=== PATIENT | male | born 1975 | race Caucasian/White ===

== ENCOUNTER 2024-06-07 20:10 | Emergency (ER) | payer BC, SELFPAY ==
[2024-06-07 20:17] VITALS: BP 136/74
[2024-06-07 20:48] LABS: % Basophils 0.7 % (0-2); % Eosinophils 1.4 % (0-6); % Immature Granulocytes 0.2 % (0-0.5); % Lymphocytes 38.2 % (20.5-51.1); % Monocytes 9.3 % (1.7-9.3); % Neutrophils 50.2 % (42.2-75.2); Absolute Basophils 0.1 10^3/uL (0-0.2); Absolute Eosinophils 0.2 10^3/uL (0-0.7); Absolute Lymphocytes 5.3 10^3/uL (1.2-3.4); Absolute Monocytes 1.3 10^3/uL (0.1-0.6); Hemoglobin 14.9 g/dL (13.0-18.0); Mean Corp Hgb Conc. 36.3 g/dL (33.0-37.0); Mean Corpuscular Hgb 32.8 pg (27.0-31.0); Mean Corpuscular Volume 90.3 fL (80.0-94.0); Nucleated Red Blood Cells % 0 % (-); Platelet Count 309 10^3/uL (130-400); Red Blood Cell Count 4.54 10^6/uL (4.70-6.10); Red Cell Dist. Width 12.8 % (11.5-14.5); White Blood Cell Count 13.8 10^3/uL (4.8-10.8)
[2024-06-07 21:02] LABS: ALT (SGPT) 35 U/L (0-50); AST (SGOT) 27 U/L (17-59); Albumin 4.1 g/dl (3.5-5.0); Alkaline Phosphatase 94 U/L (38-126); Blood Urea Nitrogen 12 mg/dl (9-20); Calcium 9.5 mg/dl (8.4-10.2); Carbon Dioxide 27 mmol/L (22-30); Chloride 104 mmol/L (98-107); Glucose 96 mg/dl (70-99); Lipase 103 U/L (23-300); Sodium 139 mmol/L (135-145); Total Bilirubin 0.3 mg/dl (0.2-1.3); Total Protein 6.8 g/dl (6.3-8.2); eGFR > 60.00
--- NOTE | 2024-06-07 22:05 | ED.GENMED ---
History of Present Illness
<NIYAH Schnedier - Last Filed: 06/08/24 03:18>
General
Chief Complaint: Abdominal Pain
Source: patient and significant other
Exam Limitations: none
Time Seen by Provider: 06/07/24 22:05
Nursing documentation reviewed up to this point in time: agreed with
History of Present Illness
History of Present Illness:
49 year old male presents for evaluation of left-sided lower chest/upper abdominal pain. Pt reports that his pain began approximately one month ago and has been intermittent in nature. Pain is located in the left lower chest/ribs and LUQ. Pt notes
that the pain is exacerbated by meals and with sitting and lying supine, slightly improved with mobility. Pt has not tried any medications for the pain. He was seen by his PCP last Tuesday where blood work was done, and pt was provided scripts for CT
and colonoscopy. He has not undergone CT or colonoscopy yet. He endorses associated decreased appetite as well as generalized mild fatigue and joint pain. No N/V, diarrhea, constipation, bloody stools, fever, chills, dysuria, hematuria, increased
frequency or urgency of urination, and recent URI.
Past History
<NIYAH Schneider - Last Filed: 06/08/24 03:18>
Past History
ED Past Medical History: Arrthythmia (A. fib, a flutter, on Eliquis)
ED Past Surgical History: Cardiac (Ablation)
Social History
Tobacco: Smoker
Personal:
Living: with family
Employment: Employed
Review of Systems
<NIYAH Schneider - Last Filed: 06/08/24 03:18>
Review of Systems
Allergies reviewed?: Yes
Constitutional: Reports fatigue (mild)
EENT: Reports no symptoms
Respiratory: Reports no symptoms
Cardiac: Reports no symptoms
ABD/GI: Reports abdominal pain (LUQ) and anorexia
: Reports flank pain (left flank )
Musculoskeletal: Reports no symptoms
Skin: Reports no symptoms
Neurological: Reports no symptoms
Endocrine: Reports no symptoms
Hematologic/Lymphatic: Reports no symptoms
Psychiatric: Reports no symptoms
Phy Exam
<[facility] [place] - Last Filed: 06/08/24 03:18>
General Physical Exam
General Presentation: well appearing
General age: appears stated age
General Skin: warm
General Habitus: normal
General Mental: alert
General Hydration: appears well hydrated
Cardiovascular Exam
Cardiovascular Exam: regular rate/rhythm
Pulmonary Exam
Pulmonary Exam: lungs clear and no respiratory distress
Gastrointestinal Exam
Gastrointestinal Exam: normal bowel sounds, soft and non distended
Palpation: left upper quadrant: Minimal tenderness
Neurological Exam
Neurological Exam: alert and oriented x3
Musculoskeletal Exam
Musculoskeletal Exam: back pain (left flank )
Course
<Lonny Singh [facility] - Last Filed: 06/08/24 03:18>
Orders/Labs/Results
Orders:
Orders
06/07/24 20:24
IV Insert/Care/Rem.- Treatment PRN
06/07/24 20:25
ECG [Electrocardiogram (*1)] Urgent
Reason for Study: Abdominal Pain
Cardiology Consult: Unknown
EKG- Treatment ONCE
06/07/24 20:38
Complete Blood Count/With Diff Urgent
Comprehensive Metabolic Panel Urgent
Lipase Urgent
06/07/24 23:26
Urinalysis Reflex To Culture Urgent
Date Specimen was Collected: 06/07/24
Time Specimen was Collected: 20:24
06/08/24 01:00
CT Chest Pe Study Urgent
Reason For Exam: left lower lung pain
Abnormal Lab Results
06/07/24
20:38
WBC 13.8 H 10^3/uL
(4.8-10.8)
RBC 4.54 L 10^6/uL
(4.70-6.10)
MCH 32.8 H pg
(27.0-31.0)
Absolute Neuts (auto) 7.0 H 10^3/uL
(1.4-6.5)
Absolute Lymphs (auto) 5.3 H 10^3/uL
(1.2-3.4)
Absolute Monos (auto) 1.3 H 10^3/uL
(0.1-0.6)
Creatinine 0.6 L mg/dL
(0.7-1.3)
06/07/24 20:38
06/07/24 20:38
Vital Signs
Initial and Last Documented VS:
Initial Vital Signs
Temp Pulse Resp BP Pulse Ox
98.1 F 56 20 136/74 98
06/07/24 20:17 06/07/24 20:17 06/07/24 20:17 06/07/24 20:17 06/07/24 20:17
Last Documented Vital Signs
Temp Pulse Resp BP Pulse Ox
98.1 F 48 11 128/84 97
06/07/24 20:17 06/08/24 02:28 06/08/24 02:28 06/08/24 02:28 06/08/24 00:45
<Sahil Solis, DO - Last Filed: 06/08/24 02:35>
Orders/Labs/Results
Orders:
Orders
06/07/24 20:24
IV Insert/Care/Rem.- Treatment PRN
06/07/24 20:25
ECG [Electrocardiogram (*1)] Urgent
Reason for Study: Abdominal Pain
Cardiology Consult: Unknown
EKG- Treatment ONCE
06/07/24 20:38
Complete Blood Count/With Diff Urgent
Comprehensive Metabolic Panel Urgent
Lipase Urgent
06/07/24 23:26
Urinalysis Reflex To Culture Urgent
Date Specimen was Collected: 06/07/24
Time Specimen was Collected: 20:24
06/08/24 01:00
CT Chest Pe Study Urgent
Reason For Exam: left lower lung pain
Abnormal Lab Results
06/07/24
20:38
WBC 13.8 H 10^3/uL
(4.8-10.8)
RBC 4.54 L 10^6/uL
(4.70-6.10)
MCH 32.8 H pg
(27.0-31.0)
Absolute Neuts (auto) 7.0 H 10^3/uL
(1.4-6.5)
Absolute Lymphs (auto) 5.3 H 10^3/uL
(1.2-3.4)
Absolute Monos (auto) 1.3 H 10^3/uL
(0.1-0.6)
Creatinine 0.6 L mg/dL
(0.7-1.3)
06/07/24 20:38
06/07/24 20:38
Vital Signs
Initial and Last Documented VS:
Initial Vital Signs
Temp Pulse Resp BP Pulse Ox
98.1 F 56 20 136/74 98
06/07/24 20:17 06/07/24 20:17 06/07/24 20:17 06/07/24 20:17 06/07/24 20:17
Last Documented Vital Signs
Temp Pulse Resp BP Pulse Ox
98.1 F 48 11 128/84 97
06/07/24 20:17 06/08/24 02:28 06/08/24 02:28 06/08/24 02:28 06/08/24 00:45
Corteslt;NIYAH Schneider - Last Filed: 06/08/24 03:18>
*Critical Care Note
Total Time (30-74mins, 75-104mins- exclusive of procedures): Not Applicable
<Sahil Solis DO - Last Filed: 06/08/24 02:35>
Update Note
Update Note:
CTA CHEST
IMPRESSION:
1. Adequate technical study. No acute pulmonary embolism.
2. No thoracic aortic aneurysm or acute aortic dissection. Bibasilar atelectasis
Incidentals:
- No acute osseous abnormality.
- No acute abnormality within the visualized abdomen.
- No thoracic lymphadenopathy or suspicious lymph nodes.
06/08/2024 0230 AM: Discussed CT scan and lab work findings with patient and . He does understand that the CT was of the chest but it did show part of the abdomen. I offered him further imaging of his abdomen but he refused stating that he was
following up with GI in [place] and they would take him from here. He does understand that a missed diagnosis is possible without further testing. Patient is being discharged in improved and stable condition. Patient has had this pain for
over a month. Denies chest pain or shortness of breath.
ED Attending Note
<Lonny Singh [facility] - Last Filed: 06/08/24 03:18>
-
Portions of this chart may have been created with voice recognition software.� Occasional wrong word or��sound alike� substitutions may have occurred due to the inherent limitations of voice recognition software.
<Sahil Solis DO - Last Filed: 06/08/24 02:35>
ED Attending Note
Patient seen and examined by attending physician: Yes
I performed the substantive portion of visit, reviewed & personally made and approve the management plan that is documented in note by myself or TATA.: Yes
ED Attending Note:
Pleasant 49-year-old male who presents with left-sided chest pain with upper abdominal pain. Pain began about a month ago and has waxed and waned. Patient reports that the pain is exacerbated with movement. He denies any chest pain or shortness
of breath. Was seen by his primary care provider last week and he was given a prescription for a colonoscopy and a CT scan of the abdomen and pelvis. He has not done those yet. Patient denies any other complaints. Patient was seen in conjunction
with the PA student. I have reviewed and agree with the history and treatment plan presented. On my independent physical exam, patient is awake, alert, and oriented x3, no acute distress. There is no CVA tenderness bilaterally. His pain appears
to be in his left long. He has minimal to no tenderness to palpation in the left upper quadrant of his abdomen. There is good bowel sounds present. Plan is to CAT scan his lungs to rule out PE.
Discharge Plan
Departure
Patient Disposition: Home (Routine Discharge)
Date of Disposition: 06/08/24
Time of Disposition: 02:31
Patient with high blood pressure during this ER visit?: Yes
Condition: Good
Discharge Problem:
Abdominal pain
Prescriptions:
No Action
diltiazem HCl 120 MG capsule,extended release 24hr
120 mg PO BID
apixaban [Eliquis] 5 MG tablet
5 mg PO BID
pantoprazole 40 MG tablet,delayed release (DR/EC)
40 mg PO DAILY Qty: 14 0RF
Rx Instructions:
Take daily for 2 weeks post procedure, then stop.
Referrals:
Vee Elliott DO [Family Provider] -
Activity Restrictions/Additional Instructions:
Please schedule your appointment for colonoscopy with GI. If your symptoms change or worsen in any way please return to the ER.
It was a pleasure meeting you and taking part in your care. We hope for your continued healing and wellness.
Please read discharge instructions in their entirety. However, they are for general education and may not describe your exact diagnosis at discharge. Information on your ER visit and medical conditions were discussed with you along with appropriate
follow up information...
If indicated, please take your medications as instructed and indicated on discharge paperwork.
Please schedule a follow up appointment as directed. Call to schedule an appointment
Please return to the emergency department with ANY change in, persisting, or worsening of symptoms. If any of your symptoms do not improve, or persist, or become more severe within 6-12 hours, please return to the emergency department for further
care.
Please return to the emergency department if you develop a headache, neck pain/stiffness, fever greater than 100.4F, chest pain, shortness of breath, persistent nausea, vomiting, slurred speech, difficulty walking, numbness/tingling, weakness, signs
of infection or any other symptoms that are worrisome to you.
If you have any questions or concerns please do not hesitate to call the Hospital at or E-mail me directly at [email or web address]
Interventions
Interventions:
*Risk Screen - Suicide Last Done: 06/07/24 20:17
*General Assessment Last Done: 06/07/24 20:17
*Neglect/Abuse Screening Last Done: 06/07/24 20:17
ED- Fall Risk Assessment Last Done: 06/07/24 20:17
*ED COVID-19 Vaccine History Last Done: 06/07/24 20:17
*Nursing Disposition Last Done: 06/08/24 02:42
WO-Irptiu-Gpugiwyxmh Assessment Last Done: 06/07/24 22:30
Discharge Date and Time
Discharge Date/Time: 06/08/24 02:43
Print Language: ICELANDIC
[2024-06-07 22:30] VITALS: BMI 27.6
[2024-06-07 22:35] VITALS: BP 121/75
[2024-06-07 23:44] LABS: Urine Albumin Negative (Neg - Trace); Urine Bilirubin Negative (Negative); Urine Character Clear (Clear); Urine Color Yellow; Urine Glucose Negative (Negative); Urine Ketone Negative (Negative); Urine Leukocyte Negative (Negative); Urine Nitrite Negative (Negative); Urine Occult Blood Negative (Negative); Urine Urobilinogen Negative (Neg - 1+)
[2024-06-08 01:23] VITALS: BP 121/67
[2024-06-08 02:28] VITALS: BP 128/84
== END 2024-06-08 02:43 | disposition home or self-care (01) ==
LOC: EMR 20:10
PROVIDERS: Emergency Medicine; EMERGENCY PHYSICIAN Student in an Organized Health Care Education/Training Program; FAMILY PHYSICIAN Family Medicine
DX: R10.12 Left upper quadrant pain (principal); F17.200 Nicotine dependence, unspecified, uncomplicated
CPT/HCPCS: 99285; 71275; 80053; 81003; 83690; 85025; 93005; Q9967

== ENCOUNTER 2025-02-18 21:31 | Emergency (ER) | payer BC, SELFPAY ==
[2025-02-18 21:33] VITALS: BP 152/82
[2025-02-18] MEDS: VALTREX 1000 MG PO (22:33)
--- NOTE | 2025-02-18 22:59 | ED.GENMED ---
History of Present Illness
General
Chief Complaint: Skin Problem
Source: patient
Exam Limitations: none
Time Seen by Provider: 02/18/25 21:50
Nursing documentation reviewed up to this point in time: agreed with
History of Present Illness
History of Present Illness:
Patient is a 49-year-old male presenting to the emergency department with rash. Patient states he started with rash on his left back about 5 days ago however over the past few days noticed some lesions spreading down to his left flank and around to
his left lower abdomen. Patient states lesions are painful/burn and feel 'tight '. He denies any associated itch. Patient denies any headache, neck pain, fevers. Patient denies any foreign body sensation in eye or drainage from eye. Patient
denies any pain in his ear. No lesions on his face or elsewhere.
No one at home with similar rash.
Initially�patient thought it may be poison jerry after working in the yard with his son although he states he was fully clothed at that time. This does not appear similar to prior poison jerry he has had in the past.
Past History
Past History
ED Past Medical History: Arrthythmia (A. fib, a flutter, on Eliquis)
ED Past Surgical History: Cardiac (Ablation)
Social History
Tobacco: Smoker
Personal:
Living: with family
Employment: Employed
Review of Systems
Review of Systems
Allergies reviewed?: Yes
All Other Systems: ROS reviewed and negative except as documented in HPI and ROS
Phy Exam
Physical Exam
Physical Exam:
Vitals: Hypertensive, otherwise vital signs stable. Afebrile
General: Patient is well appearing, no acute distress
Skin: Few clusters of vesicles on erythematous base following dermatomal distribution on left mid back to left flank. No significant surrounding erythema or red streaking. No involvement of palms, soles, face, eyes, or oral mucosa.
Head: Normocephalic, atraumatic
Eyes: Sclera nonicteric. Sclera clear bilaterally. EOMs intact. No nystagmus.
Ears: Bilateral external auditory canals clear with no evidence of rash or vesicles. TM visualized bilaterally with clear landmarks.
Throat: Protecting airway
Neck: Normal ROM, no cervical spine tenderness, no meningismus
Cardiac: Regular rate and rhythm, no murmurs.
Pulm: Normal respiratory effort, no wheezes, rales, rhonchi heard on exam.
Abdomen: No abdominal tenderness. Rash on left back/left flank as described above.
Extremities: No evidence of cyanosis or edema
Neuro: AAOx3. CN II-XII intact. No focal neurologic deficits.
Psychiatric: Normal affect.
Course
Orders/Labs/Results
Orders:
Orders
02/18/25 22:20
Valacyclovir HCl [Valtrex] 1,000 mg PO NOW STA
Vital Signs
Initial and Last Documented VS:
Initial Vital Signs
Temp Pulse Resp BP Pulse Ox
98.2 F 76 18 152/82 95
02/18/25 21:33 02/18/25 21:33 02/18/25 21:33 02/18/25 21:33 02/18/25 21:33
Last Documented Vital Signs
Temp Pulse Resp BP Pulse Ox
98.2 F 72 18 152/82 100
02/18/25 21:33 02/18/25 22:38 02/18/25 22:38 02/18/25 21:33 02/18/25 22:38
MDM/Problems Addressed
Differential Diagnosis Includes:
Not limited to: Herpes zoster, contact dermatitis, atopic dermatitis, impetigo, cellulitis, etc.
MDM/Problems Addressed:
Patient is a 49-year-old male presenting with erythematous painful rash of left flank and left back for past four days. Patient denies any ocular pain, changes in vision or other associated symptoms. No lesions on face. Vital signs as above.
Physical exam as above. Ultimately� high clinical suspicion for herpes zoster given appearance as well as dermatomal distribution. There is no evidence of secondary bacterial infection. There appears to be no involvement of face or eyes today.
Bilateral external auditory canal clear.
While symptoms have been ongoing for the past four days - he does report noticing new lesions over the past two days. In light of this � will treat with Valtrex. Initial dose given in emergency department and remainder of prescription sent into
pharmacy. Patient will follow up with primary care. Close return precautions discussed. Patient verbalized understanding.
Chronic conditions affecting care:
N/A
Acute Exacerbation and/or Progression of Chronic Illness:
N/A
*Pulse Oximetry
Patient hypoxic: no
*EKG
Interpreted by ED Provider?: NA
*[employer] Specialist Interpretation
Rate: [employer] Specialist- N/A
*Critical Care Note
Total Time (30-74mins, 75-104mins- exclusive of procedures): Not Applicable
ED Attending Note
-
Portions of this chart may have been created with voice recognition software.� Occasional wrong word or��sound alike� substitutions may have occurred due to the inherent limitations of voice recognition software.
Discharge Plan
Departure
Patient Disposition: Home (Routine Discharge)
Date of Disposition: 02/18/25
Time of Disposition: 22:22
Patient with high blood pressure during this ER visit?: Yes
Condition: Good
Covid-19: Not Applicable
Discharge Problem:
Herpes zoster
Instructions: Shingles
Prescriptions:
New
valacyclovir [Valtrex] 1 gram tablet
1,000 mg PO TID 7 Days Qty: 21 0RF
No Action
diltiazem HCl 120 MG capsule,extended release 24hr
120 mg PO BID
apixaban [Eliquis] 5 MG tablet
5 mg PO BID
pantoprazole 40 MG tablet,delayed release (DR/EC)
40 mg PO DAILY Qty: 14 0RF
Rx Instructions:
Take daily for 2 weeks post procedure, then stop.
Referrals:
NONE,* [Family Provider] -
Activity Restrictions/Additional Instructions:
Return to the emergency department with any fever, severe headache/neck pain, ear or eye pain, intractable pain, worsening in current symptoms, or any other concerns
-A prescription for Valtrex has been sent to your pharmacy. You should take this 3 times a day for the next week.
-You should keep all lesions covered until they are fully crusted over as they will continue to be contagious. Please use caution around any individuals, young children or those that are not vaccinated.
-Monitor close for secondary signs of infection of lesions. This will include significant redness, swelling, red streaking, pain, etc.
-Take Tylenol and/or Motrin as needed to for pain.
-Follow your primary care for further evaluation/management to ensure that symptoms are improving
Monitor your symptoms closely and return to the emergency department with any acute worsening/new other concerns
Interventions
Interventions:
*Risk Screen - Suicide Last Done: 02/18/25 21:34
*General Assessment Last Done: 02/18/25 21:34
*Neglect/Abuse Screening Last Done: 02/18/25 21:34
*ED- Fall Risk Assessment Last Done: 02/18/25 22:38
*ED COVID-19 Vaccine History Last Done: 02/18/25 21:34
*Nursing Disposition Last Done: 02/18/25 22:38
ED-Skin Assessment Last Done: 02/18/25 22:20
Discharge Date and Time
Discharge Date/Time: 02/18/25 22:43
Print Language: MALAY
== END 2025-02-18 22:43 | disposition home or self-care (01) ==
LOC: EMR 21:31
PROVIDERS: EMERGENCY PHYSICIAN Student in an Organized Health Care Education/Training Program
DX: B02.9 Zoster without complications (principal); R03.0 Elevated blood-pressure reading, without diagnosis of hypertension; I48.91 Unspecified atrial fibrillation; I48.92 Unspecified atrial flutter; F17.210 Nicotine dependence, cigarettes, uncomplicated; Z87.01 Personal history of pneumonia (recurrent)
CPT/HCPCS: 99283

== ENCOUNTER 2025-06-30 21:32 | Emergency (ER) | payer BC, SELFPAY ==
[2025-06-30 21:34] VITALS: BP 150/80
[2025-06-30 21:47] VITALS: BMI 27.9
[2025-06-30 22:07] VITALS: BP 118/79
[2025-06-30 22:16] LABS: Hematocrit 44.7 % (39.0-52.0); Hemoglobin 15.6 g/dL (13.0-18.0); Mean Corp Hgb Conc. 34.9 g/dL (33.0-37.0); Mean Corpuscular Volume 91.4 fL (80.0-94.0); Nucleated Red Blood Cells % 0 % (-); Platelet Count 301 10^3/uL (130-400); Red Cell Dist. Width 12.1 % (11.5-14.5)
--- NOTE | 2025-06-30 22:33 | ED.GENMED ---
History of Present Illness
General
Chief Complaint: Abdominal Pain
Time Seen by Provider: 06/30/25 22:15
History of Present Illness
History of Present Illness:
Patient presents to the emergency department left-sided abdominal pain. Symptoms have been ongoing for the past year however they are gradually worsening. He had a colonoscopy with polyp removed. Denies any nausea vomiting or diarrhea. Denies
any urinary symptoms. Denies fevers or chills
Past History
Past History
ED Past Medical History: Arrthythmia (A. fib, a flutter, on Eliquis)
ED Past Surgical History: Cardiac (Ablation)
Social History
Tobacco: Smoker
Personal:
Living: with family
Employment: Employed
Phy Exam
Physical Exam
Physical Exam:
GENERAL APPEARANCE: NAD, well developed/ well nourished
EYES lids/conjunctiva normal
EARS/NOSE/THROAT Mucous membranes moist, uvula midline without oral pharyngeal erythema, exudate or swelling
HEAD/NECK normocephalic atraumatic, neck is supple.
RESPIRATORY respiratory effort normal, speaks in full sentences, no accessory muscle use. Lungs clear to auscultation without rhonchi, wheezes, rales
CARDIAC Regular rate and rhythm, no edema.
ABDOMINAL Soft, mild left-sided abdominal tenderness. No distention. No peritoneal signs
MUSCLES/EXTREMITIES No abnormal range of motion, no swelling.
SKIN Warm, pink and dry. No rashes
NEUROLOGICAL Speech is clear and appropriate. Normal level of consciousness. 5/5 strength in all extremities.
PSYCH Normal mood and affect. Judgement/competence is appropriate
Course
Orders/Labs/Results
Orders:
Orders
06/30/25 21:32
ECG [Electrocardiogram (*1)] Urgent
Reason for Study: Chest Pain
EKG- Treatment ONCE
06/30/25 22:05
Complete Blood Count/With Diff Urgent
Comprehensive Metabolic Panel Urgent
Lipase Urgent
06/30/25 22:33
CT Abd/pelvis W Iv Cont Urgent
Comment:
Reason For Exam: L sided abdominal pain
07/01/25 01:02
Amoxicillin 875 mg/Clav 125 mg [Augmentin 875 mg/125 mg] 1 tablet PO NOW STA
Abnormal Lab Results
06/30/25
22:05
WBC 14.3 H 10^3/uL
(4.8-10.8)
MCH 31.9 H pg
(27.0-31.0)
Absolute Neuts (auto) 7.7 H 10^3/uL
(1.4-6.5)
Absolute Lymphs (auto) 5.1 H 10^3/uL
(1.2-3.4)
Absolute Monos (auto) 1.2 H 10^3/uL
(0.1-0.6)
06/30/25 22:05
06/30/25 22:05
Vital Signs
Initial and Last Documented VS:
Initial Vital Signs
Temp Pulse Resp BP Pulse Ox
99.0 F 60 20 150/80 98
06/30/25 21:34 06/30/25 21:34 06/30/25 21:34 06/30/25 21:34 06/30/25 21:34
Last Documented Vital Signs
Temp Pulse Resp BP Pulse Ox
99.0 F 54 18 118/79 95
06/30/25 21:34 06/30/25 22:00 06/30/25 22:00 06/30/25 22:07 07/01/25 00:45
*Pulse Oximetry
SaO2: 98
Oxygen Mode of Delivery: Room air
Patient hypoxic: no
*Critical Care Note
Total Time (30-74mins, 75-104mins- exclusive of procedures): Not Applicable
ED Attending Note
ED Attending Note
ED Attending Note:
Patient is very well-appearing without significant tenderness. He does have ongoing left-sided abdominal pain and with a leukocytosis with CT findings concerning for sigmoid colitis, will treat with antibiotics. 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 Return precautions given.
-
Portions of this chart may have been created with voice recognition software.� Occasional wrong word or��sound alike� substitutions may have occurred due to the inherent limitations of voice recognition software.
Discharge Plan
Departure
Patient Disposition: Home (Routine Discharge)
Date of Disposition: 07/01/25
Time of Disposition: 01:03
Patient with high blood pressure during this ER visit?: Yes
Discharge Problem:
Colitis
Instructions: Colitis
Prescriptions:
New
amoxicillin-pot clavulanate 875-125 mg tablet
1 tab PO BID 7 Days Qty: 20 0RF
Referrals:
UNKNOWN - PT DOES,NOT KNOW [Family Provider]
Activity Restrictions/Additional Instructions:
Please follow-up closely with your lsat instructor in the next few weeks for recheck. Return to the emergency department with fevers or worsening symptoms.
Interventions
Interventions:
*Risk Screen - Suicide Last Done: 06/30/25 21:34
*General Assessment Last Done: 06/30/25 21:34
*Neglect/Abuse Screening Last Done: 06/30/25 21:34
*ED- Fall Risk Assessment Last Done: 06/30/25 21:34
*ED COVID-19 Vaccine History Last Done: 06/30/25 21:34
YM-Uoxeto-Wszmopoqiv Assessment Last Done: 06/30/25 23:30
Discharge Date and Time
Print Language: KOSOVAN
[2025-06-30 22:43] LABS: ALT (SGPT) 29 U/L (0-50); AST (SGOT) 17 U/L (17-59); Albumin 4.3 g/dl (3.5-5.0); Alkaline Phosphatase 77 U/L (38-126); Blood Urea Nitrogen 17 mg/dl (9-20); Calcium 10.0 mg/dl (8.4-10.2); Carbon Dioxide 27 mmol/L (22-30); Chloride 104 mmol/L (98-107); Estimated Creatinine Clearance 122 ml/min; Glucose 96 mg/dl (70-99); Lipase 112 U/L (23-300); Potassium 4.1 mmol/L (3.5-5.1); Sodium 137 mmol/L (135-145); Total Protein 7.4 g/dl (6.3-8.2); eGFR > 60.00
[2025-07-01 01:04] VITALS: BP 128/70
[2025-07-01] MEDS: AUGMENTIN 875 MG/125 MG 1 TABLET PO (01:10)
== END 2025-07-01 01:20 | disposition home or self-care (01) ==
LOC: EMR 21:32
PROVIDERS: Physician Assistant; EMERGENCY PHYSICIAN Emergency Medicine
DX: K52.9 Noninfective gastroenteritis and colitis, unspecified (principal); I48.91 Unspecified atrial fibrillation; F17.200 Nicotine dependence, unspecified, uncomplicated; Z79.01 Long term (current) use of anticoagulants
CPT/HCPCS: 99284; 74177; 80053; 83690; 85025; 93005; Q9967

== ENCOUNTER 2025-07-22 12:50 | Emergency (ER) | payer BC, SELFPAY ==
[2025-07-22] VITALS (13 sets, daily range): BP systolic 95–143; BP diastolic 67–95; BMI 27.2
[2025-07-22 13:48] LABS: Hematocrit 47.0 % (39.0-52.0); Hemoglobin 16.5 g/dL (13.0-18.0); Mean Corp Hgb Conc. 35.1 g/dL (33.0-37.0); Mean Corpuscular Volume 90.2 fL (80.0-94.0); Nucleated Red Blood Cells % 0 % (-); Platelet Count 325 10^3/uL (130-400); Red Cell Dist. Width 12.3 % (11.5-14.5)
--- NOTE | 2025-07-22 13:58 | ED.GENMED ---
History of Present Illness
General
Chief Complaint: Blood Pressure Problem
Source: patient and spouse
Exam Limitations: none
Time Seen by Provider: 07/22/25 13:41
History of Present Illness
History of Present Illness:
Note:
CHIEF COMPLAINT(S)
Heart Racing, Fatigue, Tension
HISTORY OF PRESENT ILLNESS
The patient is a 50-year-old male who presented with a sensation of heart racing and fatigue that has persisted over the past month. He reports feeling 'drained' and 'tired,' describing a general feeling of tension overlaying his symptoms. He
completed a computed tomography scan of the abdomen, which was largely unremarkable except for a slightly elevated white blood cell count. Initial blood work, conducted by his primary care physician, checked for thyroid function, prostate cancer
markers, and Lyme disease, all of which returned negative results.
The patient was previously prescribed sertraline 25 mg for anxiety, but he reports that it has not significantly impacted his symptoms. He notes episodes of palpitations and trembling, which he says coincide with feelings of tension. Previously, he
monitored his heart rate with his smartwatch, observing it drop below 50 beats per minute during rest but notes instances of atrial fibrillation (AFib) once.
Ablation was performed in the past, which led to a significant drop in baseline heart rate at night. He is now not taking any medications specifically for his heart. Current heart rate upon presentation was recorded at 160 beats per minute.
The patient describes an intermittent tightness, especially in the left abdomen and flank area, which raises concern for him. However, he denies any explicit chest pain. His past cardiac intervention involved ablation and attempts to maintain sinus
rhythm with medications like metoprolol and apixaban, but he is no longer on those medications.
The patient has quit smoking and denies alcohol or drug use. Recent loss of appetite is reported, and he expresses uncertainty if this is related to his current condition.
EXTERNAL RECORDS REVIEWED
Previous blood work and scan results, as discussed by the patient, indicating prior checks for thyroid, prostate cancer, and Lyme disease.
PHYSICAL EXAM
General: Alert, no acute distress.
Skin: Warm, dry.
Head: Normocephalic, atraumatic.
Neck: Supple, trachea midline.
Eye Ears, nose, mouth and throat: Oral mucosa moist.
Cardiovascular: Heart rate at 160 bpm, noted as regular and tachycardic. Rapid atrial flutter observed on telemetry monitoring.
Respiratory: Respirations are non-labored, clear; lung auscultation remains clear.
Gastrointestinal: Abdomen soft and non-tender.
Back: Normal range of motion, Normal alignment.
Musculoskeletal: Normal range of motion, normal strength.
Neurological: Alert and oriented to person, place, time, and situation, No focal neurological deficit observed.
Psychiatric: Cooperative, appropriate mood & affect.
PLAN
1. Administer medication to slow the heart rate.
2. Coordinate follow-up with collar tailor, particularly the patients prior specialist, Dr. Velásquez.
3. Review lab results, including blood work and electrolytes.
4. Schedule a chest X-ray to rule out any chest or lung abnormalities.
5. Consider echocardiogram or stress test pending cardiology consultation.
DIFFERENTIAL DIAGNOSIS
The Differential Diagnosis includes, in no particular order and is not limited to:
1. Atrial Fibrillation/Flutter
2. Anxiety Disorder
3. Hyperthyroidism (given negative current thyroid tests, but consider)
4. Electrolyte Imbalance
5. Supraventricular Tachycardia
6. Coronary Artery Disease
7. Panic Disorder
8. Anemia
9. Myocarditis
10. Pulmonary Embolism
CARE-UPDATE
07/22/25 - 15:05
Continued monitoring of atrial flutter advised as the patients heart rate varies between 115-120 bpm; patient remains stable and asymptomatic. Noted slight elevation in white blood cell count at 12,000, suggestive of potential infection or stress
response. Awaiting further results, including TSA magnesium and TSH, to guide subsequent management decisions.
CARE-UPDATE
07/22/25 - 15:54
Lungs are clear upon auscultation, indicating no significant change in respiratory status.
EKG
My independent EKG interpretation is:
- Rhythm: Atrial flutter with 2:1 block
- Ventricular heart rate: 162 bpm
- [place]: Normal
- Abnormalities: Non-specific ST-T wave changes
Disposition:
SUMMARY OF ENCOUNTER
The patient is a 50-year-old male presenting with a history of feeling a sensation of heart racing and fatigue for the past month. The primary concern was a tachycardic heart rate recorded at 160 bpm, likely related to paroxysmal atrial flutter.
After administration of diltiazem IV bolus and subsequent drip, the heart rate showed significant improvement.
EMERGENCY TREATMENTS ADMINISTERED
Intravenous diltiazem bolus and drip were administered to manage the elevated heart rate associated with atrial flutter.
ASSESSMENT
The primary assessment is atrial flutter with rapid ventricular response.
PLAN
1. Continue monitoring heart rate and rhythm.
2. Coordinate a follow-up with the patients collar tailor for further evaluation and potential adjustment of outpatient management.
3. Consider additional testing such as an echocardiogram upon cardiologists recommendation.
INDEPENDENT REVIEW OF LABS AND INTERPRETATION OF TESTS
- My independent review of CBC is leukocytosis present.
- My independent review of troponin is negative.
- My independent review of LFT is normal.
- My independent review of chemistry indicates normal results.
MEDICATION RECONCILIATION
- Administered diltiazem IV bolus and drip to control tachycardia.
MEDICAL DECISION MAKING
- Chronic conditions affecting care: Anxiety Disorder, Atrial Flutter.
- Differential Diagnosis:
- Atrial Fibrillation/Flutter
- Anxiety Disorder
- Hyperthyroidism
- Electrolyte Imbalance
- Supraventricular Tachycardia
- Coronary Artery Disease
- Panic Disorder
- Anemia
- Myocarditis
- Pulmonary Embolism
- Data:
Category 1: Non-emergency department records reviewed include patients previous EKG and scan results for consideration.
Category 2: My independent EKG interpretation indicates atrial flutter with 2:1 block.
Category 3: Discussion of management with patients collar tailor.
-Risk:
Prescription medication was prescribed, with diltiazem IV being administered to manage acute tachycardia.
DIAGNOSIS
- Paroxysmal Atrial Flutter (ICD-10: I48.4)
Past History
Past History
ED Past Medical History: Arrthythmia (A. fib, a flutter, on Eliquis)
ED Past Surgical History: Cardiac (Ablation)
Social History
Tobacco: Smoker
Personal:
Living: with family
Employment: Employed
Phy Exam
Physical Exam
Physical Exam:
.
Course
Orders/Labs/Results
Orders:
Orders
07/22/25 13:10
Electrocardiogram (*1) Urgent
Reason for Study: Tachycardia
EKG- Treatment ONCE
07/22/25 13:40
CMP [Comprehensive Metabolic Panel] Urgent
Complete Blood Count/With Diff Urgent
Magnesium Urgent
Comment: ADD ON
PT/INR [Prothrombin Time] Urgent
PTT Urgent
TSH Urgent
Comment: ADD ON
Troponin I Urgent
07/22/25 13:57
Diltiazem 125 mg/125 ml Nss [Cardizem] 125 mg in 125 ml IV NOW
Initial dose in mg/hr, then titrate:: 5
Titrate to keep:: Heart rate 80-100 bpm
Titrate by mg/hr:: 5 mg/hr
Frequency of titrations (minutes):: 15
Maximum dose in mg/hr:: 15
Diltiazem HCl [Cardizem] 10 mg IV NOW STA
07/22/25 13:58
Add On- LAB Urgent
Tests Added?: TSh, Mg
07/22/25 14:01
CR Chest - 2 Views Urgent
Comment:
Reason For Exam: rapid AF, smoker, weakness
07/22/25 15:03
Diltiazem HCl [Cardizem] 15 mg IV NOW STA
07/22/25 16:11
PRN Pain Medication Management As Directed
May give lesser potent ordered pain med per pt: Yes
preference::
Protocol:: Medication orders for pain may be administered in a
manner that supports deferring to patient preference
when the pt is:
- Requesting an ordered lesser potent pain medication.
Least to most potent pain medications are defined
as: acetaminophen < NSAID < tramadol < opioids
(morphine, oxycodone, hydromorphone).
- Requesting a lesser dose of the same medication IF
ORDERED.
- Requesting a less intrusive route of administration
if both routes are prescribed by the provider (PO <
IV).
07/22/25 16:12
Code Status As Directed
Resuscitation Status: Full Code
07/22/25 20:00
Apixaban [Eliquis] 5 mg PO BID
Abnormal Lab Results
07/22/25
13:40
WBC 12.0 H 10^3/uL
(4.8-10.8)
MCH 31.7 H pg
(27.0-31.0)
Absolute Neuts (auto) 6.9 H 10^3/uL
(1.4-6.5)
Absolute Lymphs (auto) 3.7 H 10^3/uL
(1.2-3.4)
Absolute Monos (auto) 1.2 H 10^3/uL
(0.1-0.6)
Monocytes % 9.8 H %
(1.7-9.3)
Creatinine 0.6 L mg/dL
(0.7-1.3)
Glucose 113 H mg/dl
(70-99)
07/22/25 13:40
07/22/25 13:40
Vital Signs
Initial and Last Documented VS:
Initial Vital Signs
Temp Pulse Resp BP Pulse Ox
98.3 F 163 18 143/95 97
07/22/25 13:05 07/22/25 13:05 07/22/25 13:05 07/22/25 13:05 07/22/25 13:05
Last Documented Vital Signs
Temp Pulse Resp BP Pulse Ox
98.3 F 57 16 110/78 95
07/22/25 13:05 07/22/25 17:15 07/22/25 17:15 07/22/25 17:15 07/22/25 17:15
*Pulse Oximetry
SaO2: 96
Oxygen Mode of Delivery: Room air
Patient hypoxic: no
*Corner Cutter Interpretation
Rate: tachycardiac
Interpretation: abnormal
Rhythm: atrial flutter
*Critical Care Note
Total Time (30-74mins, 75-104mins- exclusive of procedures): 40 minutes
Patient Management
Discussion with other providers: Hospitalist and Bullet Assembly Press Setter Operator (Case discussed with Dr. Rose, agrees with management)
Update Note
Update Note:
Patient seen by cardiology. Patient converted to sinus rhythm. Case discussed with Dr. Rose who recommends propranolol 20 mg every 4 hours as needed and states that the patient does not need Eliquis. Patient will follow-up with cardiology.
ED Attending Note
-
Portions of this chart may have been created with voice recognition software.� Occasional wrong word or��sound alike� substitutions may have occurred due to the inherent limitations of voice recognition software.
Discharge Plan
Departure
Patient Disposition: Home (Routine Discharge)
Date of Disposition: 07/22/25
Time of Disposition: 15:05
Admit to: Telemetry
Patient with high blood pressure during this ER visit?: No
Discharge Problem:
Atrial flutter with rapid ventricular response
Prescriptions:
New
propranolol 20 mg tablet
20 mg PO Q4 PRN (Reason: palpitations, afib) Qty: 30 0RF
No Action
sertraline 25 mg Tablet
25 mg PO DAILY
melatonin 1 mg Tablet
2 mg PO HSPRN PRN (Reason: sleep)
Referrals:
Vee Elliott DO [Family Provider, Family Practice]
Activity Restrictions/Additional Instructions:
Please see cardiology in the next 1 week for follow-up and reevaluation. Return immediately for chest pain, shortness of breath, palpitations, weakness of any kind or any other concerns. Please wear your Apple Watch as often as possible to monitor
if you go in and out of atrial fibrillation.
Interventions
Interventions:
*Risk Screen - Suicide Last Done: 07/22/25 13:05
*General Assessment Last Done: 07/22/25 13:49
*Neglect/Abuse Screening Last Done: 07/22/25 13:05
*ED- Fall Risk Assessment Last Done: 07/22/25 13:49
*ED COVID-19 Vaccine History Last Done: 07/22/25 13:49
*Nursing Disposition Last Done: 07/22/25 17:39
ED- Cardiac Assessment Last Done: 07/22/25 13:47
ED- Neurological Assessment Last Done: 07/22/25 13:47
ED- Pulmonary Assessment Last Done: 07/22/25 13:47
Discharge Date and Time
Discharge Date/Time: 07/22/25 17:40
Print Language: SLOVAK
[2025-07-22 13:59] LABS: INR 1.02; PT 13.8 Sec (11.4-14.6)
[2025-07-22 14:00] LABS: APTT 33.3 Sec (23.4-35.0)
[2025-07-22 14:01] LABS: ALT (SGPT) 31 U/L (0-50); AST (SGOT) 20 U/L (17-59); Albumin 4.5 g/dl (3.5-5.0); Alkaline Phosphatase 82 U/L (38-126); Blood Urea Nitrogen 12 mg/dl (9-20); Calcium 9.8 mg/dl (8.4-10.2); Carbon Dioxide 25 mmol/L (22-30); Chloride 107 mmol/L (98-107); Estimated Creatinine Clearance > 125 ml/min; Glucose 113 mg/dl (70-99); Potassium 4.3 mmol/L (3.5-5.1); Sodium 140 mmol/L (135-145); Total Protein 7.4 g/dl (6.3-8.2); eGFR > 60.00
[2025-07-22] MEDS: CARDIZEM 125 IV (14:11)
[2025-07-22] MEDS: CARDIZEM 10 MG IV (14:11)
[2025-07-22 14:13] LABS: Troponin I < 0.012 ng/ml
[2025-07-22] MEDS: CARDIZEM 15 MG IV (15:09)
[2025-07-22 15:13] LABS: Magnesium 2.1 mg/dl (1.6-2.3)
--- NOTE | 2025-07-22 15:24 | HPS.HSE ---
Addendum entered and electronically signed by Claire Shepherd MD 07/22/25 20:23:
This is an addendum to H&P written by Yadira Berry on 07/22/2025. �Patient seen and examined independent with TRIMMING OPERATOR.
50-year-old male past medical history of atrial fibrillation status post ablation 2019, anxiety/depression presenting with elevated heart rate today. �Having fatigue and heart racing for the past month.
He has also been having intermittent left-sided upper abdominal pain for the past year described as muscle spasm. �He had colonoscopy few months ago was unremarkable for polyps. �He was here in the emergency room on 06/[address] abdomen pelvis
which showed nonspecific mild thickening of the distal ascending and sigmoid colon which represent mild colitis versus some distention. �Patient does not have any GI symptoms. �He has also been having
He has seen his primary care physician and was taking Tylenol and ibuprofen and was started anxiety medication to help with the muscle spasms which has not helped.
Has not seen follow-up with cardiology since 2019.
Vital signs show tachycardia up to 165. �EKG showed atrial flutter with 2-1 block.
Labs show leukocytosis of 12.
Chest x-ray shows no evidence of acute cardiopulmonary abnormality.
Patient with recurrence of atrial fibrillation with RVR. Cardizem drip started. �Check TSH. �Check echocardiogram. �Eliquis started. �Cardiology consulted.
On examination of the abdomen, left upper quadrant is tense and contracted. �Seems likely that the left upper quadrant abdominal pain is secondary to abdominal muscle spasm. �Will try as needed Flexeril.
Original Note:
Family Physician
-
Family Physician: Vee Elliott
Chief Complaint
-
elevated heart rate
History of Present Illness
Patient is a 50-year-old male with past medical history significant for paroxysmal atrial fibrillation who presented to [facility] ED for evaluation of elevated heart rate. Patient reports not 'feeling well,' intermittently for a while, he reports
increased fatigue, decreased appetite, lightheadedness, sensation of tremors and left side discomfort under ribs (described similar to cramp/discomfort you would get when running long distance). Today patient stated he just did not feel well this
morning and decided to check HR on his apple watch which showed him at a HR of 164 so he came to ED for evaluation. Patient denies any recent illness, fever, chills, cough, shortness of breath, chest discomfort, palpitations, diaphoresis, nausea,
vomiting, diarrhea or urinary symptoms. Patient had cardiac ablation in [address] Pizarro and has not followed up with cardiology since then, he was a patient of Dr. Plcaido Dee.
Medical History
Past Medical History
Past Medical History: Reports Other
Additional Past Medical History:
paroxysmal atrial fibrillation
anxiety/depression
Past Surgical History: Reports Other
Additional Past Surgical History:
cardiac ablation
Oral Surgery with all upper teeth removed under advanced anesthesia : [facility] 05/16
dental implants
cardioversion 08/08/19
Social History
Tobacco: Smoker (0.5 pack per day for 30 years )
Alcohol: Occasional
Drug: None
Personal:
Living: With Family
Employment: Employed
Family History
Family History: Other (Mother: atrial fibrillation )
Allergies / Home Medications
Allergies reflects when Allergies were last updated in [employer].
Home Medications with original date entered in [employer]
Allergy/Medication List:
Allergies
Allergy/AdvReac Type Severity Reaction Status Date / Time
No Known Allergies Allergy Verified 06/30/25 21:34
Home Medications
melatonin 1 mg tablet 2 mg PO HSPRN PRN sleep 07/22/25
sertraline 25 mg tablet 25 mg PO DAILY 07/22/25
Review of Systems
-
History Source: Patient
Constitutional: Reports Fatigue and Other (intermittent sensation of tremors )
EENT: Reports No Symptoms
Respiratory: Reports No Symptoms
Cardiac: Reports No Symptoms
Abdomen/GI: Reports Other (left side cramp/discomfort, poor appetite )
: Reports No Symptoms
Musculoskeletal: Reports No Symptoms
Skin: Reports No Symptoms
Neurological: Reports Other (lightheadedness )
Endocrine: Reports No Symptoms
Hematologic/Lymphatic: Reports No Symptoms
Psych: Reports No Symptoms
Physical Exam
Vital Signs
Vital Signs
Temp Pulse Resp BP Pulse Ox
98.3 F 130 12 130/78 97
07/22/25 13:05 07/22/25 15:09 07/22/25 14:30 07/22/25 15:09 07/22/25 14:30
Physical Exam
General: Well Developed, Well Nourished, No Apparent Distress, Comfortable, Conversant and Obese
HEENT: NormoCephalic, Moist mucous membranes and Atraumatic
Respiratory: Clear and Non Labored Respirations
Cardiac: S1/S2 and Irregular Rhythm; No Murmur, Rub, Gallop or Peripheral Edema
GI: Soft, Non Tender, Non Distended and Normal Bowel Sounds; No Organomegaly
Rectal: Deferred by Provider
Genito-urinary: Deferred by me
Musculoskeletal: No Clubbing, No Cyanosis and No Edema
Skin: Warm and IV/Catheter Site
Neuro: Awake, AO x 3 and Nonfocal/grossly intact
Hematologic/Lymphatic: No Lymphadenopathy
Psych: Calm and Intact Judgment/Insight
Laboratory Results
-
07/22/25 13:40
07/22/25 13:40
Laboratory Results
PT 13.8 Sec (11.4-14.6) 07/22/25 13:40
INR 1.02 07/22/25 13:40
APTT 33.3 Sec (23.4-35.0) 07/22/25 13:40
Total Bilirubin 0.6 mg/dl (0.2-1.3) 07/22/25 13:40
AST 20 U/L (17-59) 07/22/25 13:40
ALT 31 U/L (0-50) 07/22/25 13:40
Alkaline Phosphatase 82 U/L (38-126) 07/22/25 13:40
Troponin I < 0.012 ng/ml 07/22/25 13:40
Data Reviewed
-
Diagnostic Radiology: Report Reviewed by me (CXR: No radiographic evidence of acute cardiopulmonary abnormality.)
Medical Tests (Nuc Med, Echo, EKG etc): Report Reviewed by me (EKG: Critical Test Result: High HR ATRIAL FLUTTER WITH [address] and T WAVE ABNORMALITY, CONSIDER INFEROLATERAL ISCHEMIA)
Lab Data: Labs Reviewed by me (WBC 12.0)
Impression/Plan
-
IMPRESSION/PLAN:
#atrial flutter with RVR
WBC 12.0
CXR: No radiographic evidence of acute cardiopulmonary abnormality.
EKG: Critical Test Result: High HR
ATRIAL FLUTTER WITH [address] and T WAVE ABNORMALITY, CONSIDER INFEROLATERAL ISCHEMIA
- Admit to IVU
- Consult cardiology
- Diltiazem gtt
- ECHO AM
#upper left abdominal discomfort
Abd/Pel CT (06/30/2025): 1. Nonspecific mild thickening of the distal descending and sigmoid colon which may represent a mild colitis versus underdistention. No significant inflammatory changes or
free fluid within the abdomen or pelvis.
2. Moderate calcified and noncalcified plaque within the ectatic infrarenal abdominal aorta measuring up to 2 cm.
3. Additional findings above.
recent colonoscopy with GI that was relatively benign per patient
- add PRN Flexeril
#paroxysmal atrial fibrillation
s/p cardiac ablation 2018
#anxiety/depression
- continue sertraline
Code status: full code
DVT prophylaxis: Eliquis
--- NOTE | 2025-07-22 15:43 | CON.CAR ---
Addendum entered and electronically signed by Derrick Rose MD 07/22/25 18:26:
I saw and evaluated the patient, and I provided the substantive portion of the medical decision making.
I reviewed and agree with the note by MARK Murphy and it accurately reflects our care.
I personally performed the medical decision making of the this encounter and my assessment and plan is below:
PAF and PA flutter. [id number] score 0. Highly symptomatic. Back to sinus rhythm here in the ER. He only received intravenous diltiazem.
Chronic intermittent left upper quadrant pain that is not related to cardiovascular disease to my assessment. I told him that he would not benefit from cardiac testing just for this left upper quadrant constant pain that waxes and wanes.
Fatigue: Uncertain etiology. on occasion this can be of cardiovascular etiology. A stress test and echo seem appropriate particular given the recurrent arrhythmia.
From a cardiac standpoint safe for home with just as needed propranolol and early follow-up in our office. I offered prompt referral for repeat ablation but he like to go a little bit slower and so I will see him but at any time he can see
Juarez for repeat ablation.
We have arranged prompt outpatient echo, stress test, and an office visit with me. Extensive time spent discussing the above with the patient, ER attending, and the nurse practitioner.
Original Note:
Consultation
Consultation Request
Date/Time Consultation Requested: 07/22/25 1514
Date/Time Consultation Performed: 07/22/25 1543
Requesting Provider: Dr. Candelaria
Performing Provider: Melanie FLORES for Dr. Rose
Reason for Consultation: AFIB/flutter
Medical History
-
Chief Complaint: palpitations and tachycardia
History of Present Illness:
50 y/o male (former patient of Dr. Bonilla, EP Dr. Pizarro) with current tobacco use and hx persistent AFIB, and typical atrial flutter who had AFIB and flutter ablation 2018 who is here for evaluation of palpitations that felt like a fluttering
starting today and tachycardia to 160's noted on his apple watch. He had associated light-headedness. He has been feeling unwell overall for 1-2 months with fatigue. He has also had left-sided abdominal cramping, which seems to be worse after eating
and when at rest. He has had a low appetite. He came to the ER for the abdominal pain earlier this month and was sent home with abx for colitis. He had SB at 50 BPM on EKG at visit 06/30/25. Or arrival, his rhythm appeared to be atrial flutter, now he
looks to be in AFIB. He is rate-controlled on IV diltiazem and feeling improved at the time of my assessment. He is in no distress. His and son are at the bedside.
Past Medical History
Past Medical History: Arrhythmias and Other (as above)
Social History
Tobacco: Smoker (11/29 PPD)
Personal:
Living: With Family
Family History
Family History: Other (mom AFIB)
Allergies / Home Medications
Allergy/AdvReac Type Severity Reaction Status Date / Time
No Known Allergies Allergy Verified 06/30/25 21:34
�Medication �Instructions �Recorded �Confirmed �Type
melatonin 1 mg tablet 2 mg PO HSPRN PRN sleep 07/22/25 07/22/25 History
sertraline 25 mg tablet 25 mg PO DAILY 07/22/25 07/22/25 History
Review of Systems
-
History Source: Patient
All other systems: Negative unless noted
Constitutional: Fatigue and Other (LH, poor appetite)
Cardiac: Palpitations
Abdomen/GI: Abdominal Pain
Physical Exam
Vital Signs
Temp Pulse Resp BP Pulse Ox
98.3 F 130 12 130/78 97
07/22/25 13:05 07/22/25 15:09 07/22/25 14:30 07/22/25 15:09 07/22/25 14:30
Lab Results
07/22/25 13:40
07/22/25 13:40
Troponin I < 0.012 ng/ml 07/22/25 13:40
Physical Exam
General: Well Developed, Well Nourished and No Apparent Distress
HEENT: Normocephalic and Anicteric
Respiratory: Clear and Non Labored Respirations
Cardiac: Irregular Rhythm
Musculoskeletal: No Edema
Skin: Warm and Dry
Neuro: AO x 3
Psych: Calm
Impression / Plan
-
Atrial fibrillation- type unknown- hx persistent, Atrial flutter (hx typical):
-now back in SR. Does have SB, so not adding standing rate-control agent for now.
-discussed with Dr. Rose- plan for propranolol 20 mg Q 6 hours PRN palps/tachycardia. OP echo and stress test, and follow-up in our office with Dr. Rose- our office will arrange.
-TSH pending
-should also have OP sleep study
-[id number] score is 0 so he does not require OAC at this time
-Dr. Rose discussed above plan with emergency room physician
Tobacco use:
-I have recommended total cessation
Abdominal cramping:
-w/u and management per ER/IM/PCP
Data Reviewed
-
EKG: Tracing Personally Visualized and interpreted
Radiology: Report Reviewed by me (CXR: No radiographic evidence of acute cardiopulmonary abnormality.)
Medical Tests (Nuc Med, Echo etc): Report Reviewed by me ([facility] 08/08/29: Left ventricular ejection fraction is 60-65%. Normal regional wall motion. -Left atrial appendage is dilated. No thrombus detected in the left atrial appendage. )
Labs: Labs Reviewed by me
[2025-07-22 15:57] LABS: TSH 1.56 uIU/ml (0.47-4.68)
== END 2025-07-22 17:40 | disposition home or self-care (01) ==
LOC: EMR 12:50
PROVIDERS: Physician Assistant; EMERGENCY PHYSICIAN Emergency Medicine; FAMILY PHYSICIAN Family Medicine
DX: I48.3 Typical atrial flutter (principal); I48.19 Other persistent atrial fibrillation; D72.829 Elevated white blood cell count, unspecified; F41.9 Anxiety disorder, unspecified; F32.A Depression, unspecified; Z87.891 Personal history of nicotine dependence
CPT/HCPCS: 99284; 96374; 96376 ×2; 71046; 80053; 83735; 84443; 84484; 85025; 85610; 85730; 93005

== ENCOUNTER → 2025-07-31 08:07 | Outpatient (REF) | payer BC, SELFPAY | LOC: RCS 08:07 | PROVIDERS: ATTENDING PHYSICIAN Internal Medicine Cardiovascular Disease; FAMILY PHYSICIAN Family Medicine | DX: I48.0 Paroxysmal atrial fibrillation (principal) | CPT/HCPCS: 93306 ==

== ENCOUNTER → 2025-08-02 08:14 | Outpatient (REF) | payer BC, SELFPAY | LOC: RCS 08:14 | PROVIDERS: ATTENDING PHYSICIAN Internal Medicine Cardiovascular Disease; FAMILY PHYSICIAN Family Medicine | DX: I48.0 Paroxysmal atrial fibrillation (principal) | CPT/HCPCS: 93017; 93350 ==

== ENCOUNTER 2025-09-23 16:08 | Emergency (ER) | payer BC, SELFPAY ==
[2025-09-23 16:16] VITALS: BP 129/77
[2025-09-23 16:22] VITALS: BP 141/73
[2025-09-23 16:35] LABS: Hematocrit 42.3 % (39.0-52.0); Hemoglobin 14.8 g/dL (13.0-18.0); Mean Corp Hgb Conc. 35.0 g/dL (33.0-37.0); Mean Corpuscular Volume 92.2 fL (80.0-94.0); Nucleated Red Blood Cells % 0 % (-); Platelet Count 321 10^3/uL (130-400); Red Cell Dist. Width 13.2 % (11.5-14.5)
[2025-09-23 16:59] LABS: ALT (SGPT) 29 U/L (0-50); AST (SGOT) 20 U/L (17-59); Albumin 4.4 g/dl (3.5-5.0); Alkaline Phosphatase 64 U/L (38-126); Blood Urea Nitrogen 12 mg/dl (9-20); Calcium 9.9 mg/dl (8.4-10.2); Carbon Dioxide 28 mmol/L (22-30); Chloride 106 mmol/L (98-107); Glucose 100 mg/dl (70-99); Potassium 3.8 mmol/L (3.5-5.1); Sodium 139 mmol/L (135-145); Total Protein 7.5 g/dl (6.3-8.2); eGFR > 60.00
[2025-09-23 17:02] LABS: Troponin I < 0.012 ng/ml
[2025-09-23 18:36] VITALS: BP 146/61
[2025-09-23 19:00] VITALS: BP 116/81
--- NOTE | 2025-09-23 19:02 | ED.GENMED ---
History of Present Illness
General
Chief Complaint: Chest Pain
Time Seen by Provider: 09/23/25 19:02
History of Present Illness
History of Present Illness:
FOCUSED PAST MEDICAL HISTORY
- PAF
REVIEW OF OLD RECORDS
- I reviewed records, the patient was seen June 2025 in the emergency department and also was seen by Dr. Rose with PAF/PA flutter. Stress echo from 08/02/2025 showed normal EF and was felt to be overall low risk stress test.
Note:
CHIEF COMPLAINT(S)
Numbness and tingling in the left arm.
HISTORY OF PRESENT ILLNESS
The patient is a 50-year-old male presenting with worsening numbness and tingling in the left arm. This sensation, described as 'tingly' and the feeling of being able to throw the arm against the wall without feeling it, began approximately two
months ago. Initially, the symptoms were mild, affecting mainly the fingers with tingling; however, they have progressively worsened. The patient also reports pain radiating from the left shoulder into the chest and side, as well as tinnitus. The
patients pulse rate was 160 two months ago, prompting further investigation by his primary care provider (PCP).
Preceding evaluations included a stress echocardiogram and an echocardiogram, which were unremarkable. A neck X-ray and a computed tomography scan of the head were performed, revealing no abnormalities. Lyme disease was suspected, but testing
returned negative; nonetheless, the patient was prescribed doxycycline. Steroid therapy was attempted, contrary to expectations, and amplified the pain. The patient expressed frustration regarding the difficulty in obtaining an MRI and waiting times
for an electromyography (EMG) appointment.
The patient has a history of atrial fibrillation, previously managed with diltiazem, but was not currently on this medication. Instead, the patient is prescribed propranolol, taken as needed for palpitations, and has three days remaining on the
doxycycline course.
At present, the patient expresses concern about possible nerve or cardiac issues due to the increasing severity of symptoms, and reports familial and self-monitoring of cardiac activity, showing regular rhythms thus far.
ADDITIONAL HISTORY OBTAINED FROM SOURCES OTHER THAN THE PATIENT
Per the patients wet milling wheel operator, the patient was referred to the emergency room for worsening symptoms, although the cardiac evaluation showed no acute changes suggestive of a heart attack during a recent visit.
EXTERNAL RECORDS REVIEWED
The patients previous cardiac tests, including stress echocardiogram and echocardiogram, both of which were without significant findings, according to what the patient shared. Additionally, Lyme disease testing was negative.
MEDICATIONS
- Doxycycline, currently with three days remaining.
- Propranolol, as needed for palpitations.
PHYSICAL EXAM
General: Alert, no acute distress.
Skin: Warm, dry.
Head: Normocephalic, atraumatic.
Neck: Supple, trachea midline.
Eye Ears, nose, mouth, and throat: Oral mucosa moist.
Cardiovascular: Normal peripheral perfusion, No edema. His radial and ulnar pulses were excellent. No murmur. No significant chest wall tenderness
Respiratory: Respirations are non-labored.
Gastrointestinal: Abdomen nondistended.
Back: Normal range of motion, Normal alignment.
Musculoskeletal: Normal range of motion, and normal strength in the limbs.
Neurological: Alert and oriented to person, place, time, and situation, No focal neurological deficit observed on motor strength testing. However, the sensation was diminished on the left upper extremity with no lower extremity involvement,
excellent strength in a median, radial, ulnar nerve distribution of the left upper extremity.
Psychiatric: Cooperative, appropriate mood and affect.
PROBLEM LIST
Acute:
- Numbness and tingling in the left arm
- Pain radiating from the shoulder to the chest
- Tinnitus
PLAN
- Prescribed gabapentin for neuropathic pain management.
- Provided the patient with contact information for local neurology and neurosurgery specialists for further evaluation.
- Advised continuation of cardiac monitoring and follow-up with a wet milling wheel operator as required.
- Discussed the nature of MRI and EMG tests being conducted on an outpatient basis due to their current indication.
DIFFERENTIAL DIAGNOSIS
The Differential Diagnosis includes, in no particular order and is not limited to:
- Cervical radiculopathy
- Peripheral neuropathy
- Multiple sclerosis
- Cervical spondylosis
- Brachial plexus injury
- Thoracic outlet syndrome
- Cardiac arrhythmia
- Myocardial ischemia
- TIA/Stroke
- Anxiety-related somatic symptom disorder
EKG
- Sinus 62, nonspecific ST abnormality�no significant change in comparison to the EKG from 06/30/2025
LABS
- White count 12.4 (review of records indicates that he has chronically been elevated over the last several years, normal hemoglobin, normal chemistries, troponin less than 0.012
UPDATE
-SUMMARY OF ENCOUNTER
The patient, a 50-year-old male, was seen in the emergency department for worsening numbness and tingling in the left arm, as recommended by his wet milling wheel operator for further evaluation. He reported a CT scan of the brain and a neck x-ray which revealed
no clear cause for his symptoms. Physical examination demonstrated mild sensory deficits to the left upper extremity, but with excellent strength and pulses.
PLAN
The patient was advised to continue outpatient follow-up and was provided with contact information for neurology and neurosurgery specialists for further evaluation.
MEDICATION RECONCILIATION
The patient is currently taking doxycycline, with three days remaining, and propranolol as needed for palpitations. No new medications were prescribed during this visit.
MEDICAL DECISION MAKING
- Complexity of Data Reviewed: Chronic conditions affecting care include a history of atrial fibrillation. Differential Diagnosis includes cervical radiculopathy, peripheral neuropathy, multiple sclerosis, cervical spondylosis, brachial plexus
injury, thoracic outlet syndrome, cardiac arrhythmia, myocardial ischemia, TIA/Stroke, and anxiety-related somatic symptom disorder.
- Data:
Category 1:
Non-emergency department records reviewed. Patient shared prior cardiac tests and CT scan results.
Category 2:
Clinical information was obtained from an independent historian, the patients wet milling wheel operator.
- Risk:
Consideration of Admission/Observation: Escalation of care including admission/observation was considered given the complexity and risk of the patients presenting complaint, exam findings, and/or his underlying comorbidities. However, ultimately the
patient is safe for outpatient management with close follow-up. Reasoning: Work-up reassuring, does not reveal any acute life/organ threatening processes, patients symptoms well controlled upon reevaluation, reexamination is reassuring, vitals are
stable, patient agreeable with discharge, reliable for follow-up.
DIAGNOSIS
- Sensory deficit (ICD-10: R20.9)
- Possible cervical radiculopathy
- History of atrial fibrillation (ICD-10: I48.91)
Past History
Past History
ED Past Medical History: Arrthythmia (A. fib, a flutter, on Eliquis)
ED Past Surgical History: Cardiac (Ablation)
Social History
Tobacco: Smoker
Personal:
Living: with family
Employment: Employed
Phy Exam
Physical Exam
Physical Exam:
See HPI
Scores
Heart Score for Chest Pain Patients
STEMI patient?: Not applicable
Course
Orders/Labs/Results
Orders:
Orders
09/23/25 16:09
EKG [Electrocardiogram (*1)] Urgent
Reason for Study: Chest Pain
EKG- Treatment ONCE
09/23/25 16:28
Complete Blood Count/With Diff Urgent
Comprehensive Metabolic Panel Urgent
Troponin I Urgent
Abnormal Lab Results
09/23/25
16:28
WBC 12.4 H 10^3/uL
(4.8-10.8)
RBC 4.59 L 10^6/uL
(4.70-6.10)
MCH 32.2 H pg
(27.0-31.0)
Absolute Neuts (auto) 7.5 H 10^3/uL
(1.4-6.5)
Absolute Lymphs (auto) 3.8 H 10^3/uL
(1.2-3.4)
Absolute Monos (auto) 1.0 H 10^3/uL
(0.1-0.6)
Glucose 100 H mg/dl
(70-99)
09/23/25 16:28
09/23/25 16:28
Vital Signs
Initial and Last Documented VS:
Initial Vital Signs
Temp Pulse Resp BP Pulse Ox
36.8 C 64 16 129/77 97
09/23/25 16:16 09/23/25 16:16 09/23/25 16:16 09/23/25 16:16 09/23/25 16:16
Last Documented Vital Signs
Temp Pulse Resp BP Pulse Ox
36.8 C 53 25 116/81 97
09/23/25 16:16 09/23/25 19:15 09/23/25 19:15 09/23/25 19:00 09/23/25 19:15
*Pulse Oximetry
SaO2: 98
Patient hypoxic: no
*Critical Care Note
Total Time (30-74mins, 75-104mins- exclusive of procedures): Not Applicable
ED Attending Note
-
Portions of this chart may have been created with voice recognition software.� Occasional wrong word or��sound alike� substitutions may have occurred due to the inherent limitations of voice recognition software.
Discharge Plan
Departure
Patient Disposition: Home (Routine Discharge)
Date of Disposition: 09/23/25
Time of Disposition: 19:24
Patient with high blood pressure during this ER visit?: Yes
Discharge Problem:
Cervical radiculopathy
Instructions: Radiculopathy of the neck and back (including sciatica) (DC), BLOOD PRESSURE
Prescriptions:
New
gabapentin 300 mg capsule
300 mg PO TID PRN (Reason: pain) Qty: 21 0RF
No Action
sertraline 25 mg Tablet
25 mg PO DAILY
melatonin 1 mg Tablet
2 mg PO HSPRN PRN (Reason: sleep)
propranolol 20 mg tablet
20 mg PO Q4 PRN (Reason: palpitations, afib) Qty: 30 0RF
Referrals:
Hellen Barltett MD [Non-Admitting Privileges, Neurology]
Musa Monique MD [Active, Neurology]
Lynnette Alvarez MD [Active, Neurosurgery]
Activity Restrictions/Additional Instructions:
Your symptoms could be related to a cervical radiculopathy. Often time for this, steroids are given however we will hold off on any further steroids as you said this has made it worse. I am sending a prescription for a neuropathic pain medication
called Neurontin. I am sending this to your pharmacy. Follow-up with neurology (Kayden/Dhruv) and/or neurosurgery (Kim).
Interventions
Interventions:
*Risk Screen - Suicide Last Done: 09/23/25 16:16
*General Assessment Last Done: 09/23/25 16:16
*Neglect/Abuse Screening Last Done: 09/23/25 16:16
*ED- Fall Risk Assessment Last Done: 09/23/25 18:54
*ED COVID-19 Vaccine History Last Done: 09/23/25 16:16
*ED Influenza Vaccine History Last Done: 09/23/25 16:16
*Nursing Disposition Last Done: 09/23/25 19:45
ED- Cardiac Assessment Last Done: 09/23/25 18:54
Discharge Date and Time
Discharge Date/Time: 09/23/25 19:46
Print Language: SAMMARINESE
== END 2025-09-23 19:46 | disposition home or self-care (01) ==
LOC: EMR 16:08
PROVIDERS: Emergency Medicine; EMERGENCY PHYSICIAN Emergency Medicine; FAMILY PHYSICIAN Family Medicine
DX: M54.12 Radiculopathy, cervical region (principal); M25.512 Pain in left shoulder; H93.19 Tinnitus, unspecified ear; R03.0 Elevated blood-pressure reading, without diagnosis of hypertension; I48.91 Unspecified atrial fibrillation; I48.0 Paroxysmal atrial fibrillation; I48.92 Unspecified atrial flutter; F17.200 Nicotine dependence, unspecified, uncomplicated
CPT/HCPCS: 99283; 80053; 84484; 85025; 93005